=== PATIENT | male | born 1970 | race Caucasian/White ===

== ENCOUNTER → 2019-12-31 10:51 | Outpatient (BNVA) | payer BC, SELFPAY | PROVIDERS: Family Provider Nurse Practitioner Family; PCP Nurse Practitioner Family; Referring Provider Internal Medicine Rheumatology; Visit Provider Internal Medicine Rheumatology | DX: M35.9 Systemic involvement of connective tissue, unspecified (principal); Z79.52 Long term (current) use of systemic steroids; Z79.899 Other long term (current) drug therapy; R76.0 Raised antibody titer | CPT/HCPCS: 36415; 80053; 85613; 85651; 85730; 86140; 86146; 86147 ==

== ENCOUNTER → 2019-12-31 10:58 | Outpatient (BNVA) | payer BC, SELFPAY | PROVIDERS: Family Provider Nurse Practitioner Family; PCP Nurse Practitioner Family; Referring Provider Internal Medicine Rheumatology; Visit Provider Internal Medicine Rheumatology | DX: M35.9 Systemic involvement of connective tissue, unspecified (principal); Z79.52 Long term (current) use of systemic steroids; Z79.899 Other long term (current) drug therapy; R76.0 Raised antibody titer | CPT/HCPCS: 85025 ==

== ENCOUNTER → 2020-01-27 15:23 | Outpatient (BNVA) | payer BC, SELFPAY | PROVIDERS: Family Provider Nurse Practitioner Family; PCP Nurse Practitioner Family; Visit Provider Nurse Practitioner Family | DX: J32.9 Chronic sinusitis, unspecified (principal) | CPT/HCPCS: 71046 ==

== ENCOUNTER → 2020-02-04 10:21 | Outpatient (BNVA) | payer BC, SELFPAY | PROVIDERS: Family Provider Nurse Practitioner Family; PCP Nurse Practitioner Family; Referring Provider Internal Medicine Rheumatology; Visit Provider Specialist | DX: R41.3 Other amnesia (principal); R51 Headache; F17.210 Nicotine dependence, cigarettes, uncomplicated | CPT/HCPCS: 99205 ==

== ENCOUNTER → 2020-02-10 14:13 | Outpatient (BNVA) | payer BC, SELFPAY | PROVIDERS: Family Provider Nurse Practitioner Family; PCP Nurse Practitioner Family; Visit Provider Internal Medicine Rheumatology | DX: M19.90 Unspecified osteoarthritis, unspecified site (principal); Z79.899 Other long term (current) drug therapy; E27.40 Unspecified adrenocortical insufficiency; R76.8 Other specified abnormal immunological findings in serum; R63.4 Abnormal weight loss; F07.81 Postconcussional syndrome; Z79.52 Long term (current) use of systemic steroids | CPT/HCPCS: 99214; G0463 ==

== ENCOUNTER 2020-02-10 15:48 | Outpatient (CLI) | payer BC, SELFPAY ==
--- NOTE | 2020-02-10 16:21 | XR_ITS ---
WS: [id number] RIGHT FOOT: 3 VIEW(S) TECHNIQUE: PA, oblique and lateral. HISTORY: inflammatory arthritis COMPARISON: None available. No acute fracture or dislocation. Mild narrowing of the first metatarsophalangeal joint. No erosions at the metatarsal heads. Mild hype rtrophic bone formation in the midfoot. No soft tissue abnormality or bone destruction. XR/XR foot RT min 3V* [id number] IMPRESSION: 1. No erosions or inflammatory arthritis. 2. 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
--- NOTE | 2020-02-10 16:21 | XR_ITS ---
WS: [id number] RIGHT HAND: 3 VIEW(S) TECHNIQUE: PA, oblique and lateral. HISTORY: inflammatory arthritis COMPARISON: None available. No acute fracture or dislocation. Mild narrowing of the interphalangeal joint spaces. No soft tissue swelling or edema. No erosions at the metacarpal heads. Foreign body in the soft tissues projected between the proximal first and secon d metacarpals projects over the thenar eminence on the lateral projection. Mild narrowing of the distal radioulnar joint. XR/XR hand RT min 3V* [id number] IMPRESSION: Minimal changes of osteoarthritis.
--- NOTE | 2020-02-10 16:21 | XR_ITS ---
WS: [id number] LEFT HAND: 3 VIEW(S) TECHNIQUE: PA, oblique and lateral. HISTORY: inflammatory arthritis COMPARISON: None available. No acute fracture or dislocation. No soft tissue or bone abnormality. XR/XR hand LT min 3V* [id number] IMPRESSION: Normal LEFT hand.
--- NOTE | 2020-02-10 16:21 | XR_ITS ---
WS: [id number] LEFT FOOT: 3 VIEW(S) TECHNIQUE: PA, oblique and lateral. HISTORY: inflammatory arthritis COMPARISON: None available. No acute fracture or dislocation. Very mild narrowing of the first metatarsophalangeal joint. No erosions at the tarsal heads. No osteo penia. Enthesopathy at the Achilles tendon. Very small calcaneal spur. Hammertoe deformities. XR/XR foot LT min 3V* [id number] IMPRESSION: 1. No erosions to suggest inflammatory arthritis. 2. Hammertoe deformities.
== END 2020-02-10 15:49 | disposition home or self-care (01) ==
PROVIDERS: Family Provider Nurse Practitioner Family; PCP Nurse Practitioner Family; Visit Provider Internal Medicine Rheumatology
DX: M19.041 Primary osteoarthritis, right hand (principal); M19.071 Primary osteoarthritis, right ankle and foot; M20.42 Other hammer toe(s) (acquired), left foot
CPT/HCPCS: 73130; 73630

== ENCOUNTER 2020-02-11 08:05 | Outpatient (CLI) | payer BC, SELFPAY ==
[2020-02-11 09:09] LABS: C Reactive Protein 2.4 mg/L (0.0-4.9); Thyroid Stimulating Hormone 1.89 uIU/mL (0.27-4.20)
[2020-02-11 09:16] LABS: 25 Hydroxy Vitamin D 27 ng/mL (30-100)
[2020-02-11 09:21] LABS: Erythrocyte Sedimentation Rate 14 mm/hr (0-10)
[2020-02-11 09:53] LABS: Cortisol Random 13.07 mcg/dL (2.47-19.5)
[2020-02-13 18:36] LABS: HLA-B27 NEGATIVE (NEGATIVE)
== END 2020-02-11 08:06 | disposition home or self-care (01) ==
LOC: LAB 08:08
PROVIDERS: Family Provider Nurse Practitioner Family; PCP Nurse Practitioner Family; Visit Provider Internal Medicine Rheumatology
DX: M19.90 Unspecified osteoarthritis, unspecified site (principal); E27.40 Unspecified adrenocortical insufficiency; Z79.899 Other long term (current) drug therapy
CPT/HCPCS: 36415; 82306; 82533; 84443; 85651; 86140; 86812

== ENCOUNTER 2020-02-16 06:35 | Outpatient (CLI) | payer BC, SELFPAY ==
--- NOTE | 2020-02-16 07:15 | MR_ITS ---
WS: [id number] MRI of the head and brain without IV contrast, 02/16/2020 Clinical Data: migraines Comparison: None. Findings: Ventricular system is normal without shift. No recent infarct or hemorrhage is seen. No abnormal intracerebral mass is present. The cerebellum and brainstem are unremarkable. The carotid arteries show no aneurysms. The regions of nerves VII and VIII and the mastoid air cells are unremarkable. The pituitary, intraorbital contents and paranasal sinuses are normal. MR/MR head wo con* [id number] Impression: Negative MRI of the head and brain.
== END 2020-02-16 06:36 | disposition home or self-care (01) ==
LOC: RADSHAW 06:35
PROVIDERS: Family Provider Nurse Practitioner Family; PCP Nurse Practitioner Family; Visit Provider Specialist
DX: G43.711 Chronic migraine without aura, intractable, with status migrainosus (principal)
CPT/HCPCS: 70551

== ENCOUNTER → 2020-04-12 14:50 | Outpatient (BNVA) | payer BC, SELFPAY | PROVIDERS: Family Provider Nurse Practitioner Family; PCP Nurse Practitioner Family; Visit Provider Internal Medicine Rheumatology | DX: Z79.899 Other long term (current) drug therapy (principal); M19.90 Unspecified osteoarthritis, unspecified site | CPT/HCPCS: 36415; 80076; 82565; 85025; 85651; 86140 ==

== ENCOUNTER → 2020-06-06 12:54 | Outpatient (BNVA) | payer BC, SELFPAY | PROVIDERS: Family Provider Nurse Practitioner Family; PCP Nurse Practitioner Family; Visit Provider Internal Medicine Rheumatology | DX: Z79.899 Other long term (current) drug therapy (principal) | CPT/HCPCS: 36415; 80076; 82565; 85025; 85651; 86140 ==

== ENCOUNTER → 2020-07-21 15:31 | Outpatient (BNVA) | payer BC, SELFPAY | PROVIDERS: Family Provider Nurse Practitioner Family; PCP Nurse Practitioner Family; Visit Provider Internal Medicine Rheumatology | DX: M06.041 Rheumatoid arthritis without rheumatoid factor, right hand (principal); M06.042 Rheumatoid arthritis without rheumatoid factor, left hand; M35.9 Systemic involvement of connective tissue, unspecified; Z79.899 Other long term (current) drug therapy; R76.8 Other specified abnormal immunological findings in serum; F17.210 Nicotine dependence, cigarettes, uncomplicated; Z79.52 Long term (current) use of systemic steroids | CPT/HCPCS: 99214 ==

== ENCOUNTER → 2020-08-16 14:03 | Outpatient (BNVA) | payer BC, SELFPAY | PROVIDERS: Family Provider Nurse Practitioner Family; PCP Nurse Practitioner Family; Visit Provider Nurse Practitioner Family | DX: E78.2 Mixed hyperlipidemia (principal); K21.9 Gastro-esophageal reflux disease without esophagitis; M19.90 Unspecified osteoarthritis, unspecified site; R53.83 Other fatigue; E55.9 Vitamin D deficiency, unspecified; Z79.899 Other long term (current) drug therapy | CPT/HCPCS: 80053; 80061; 80076; 81003; 82306; 82565; 83036; 84443; 85025; 85651; 86140 ==

== ENCOUNTER → 2020-10-14 14:39 | Outpatient (BNVA) | payer BC, SELFPAY | PROVIDERS: Family Provider Nurse Practitioner Family; PCP Nurse Practitioner Family; Visit Provider Nurse Practitioner Family | DX: N39.0 Urinary tract infection, site not specified (principal); N40.0 Benign prostatic hyperplasia without lower urinary tract symptoms; A49.9 Bacterial infection, unspecified; R36.1 Hematospermia | CPT/HCPCS: 81000 ==

== ENCOUNTER 2020-10-18 15:00 | Outpatient (CLI) | payer OTHER, BC, SELFPAY | END 2020-10-18 15:01 | disposition home or self-care (01) | LOC: LAB 08-13 12:03 | PROVIDERS: PCP Nurse Practitioner Family; Visit Provider Nurse Practitioner Family | DX: E87.6 Hypokalemia (principal); N52.9 Male erectile dysfunction, unspecified; R53.83 Other fatigue; N39.0 Urinary tract infection, site not specified; A49.9 Bacterial infection, unspecified | CPT/HCPCS: 80053; 81003; 84402; 84403 ==

== ENCOUNTER → 2020-10-26 11:59 | Outpatient (BNVA) | payer BC, SELFPAY | PROVIDERS: Family Provider Nurse Practitioner Family; PCP Nurse Practitioner Family; Visit Provider Family Medicine | DX: R36.1 Hematospermia (principal); K40.90 Unilateral inguinal hernia, without obstruction or gangrene, not specified as recurrent; R10.9 Unspecified abdominal pain; N45.2 Orchitis | CPT/HCPCS: 87491; 87591 ==

== ENCOUNTER → 2020-11-07 07:56 | Outpatient (BNVA) | payer BC, SELFPAY | PROVIDERS: Family Provider Nurse Practitioner Family; PCP Nurse Practitioner Family; Referring Provider Nurse Practitioner Family; Visit Provider Urology | DX: Z12.5 Encounter for screening for malignant neoplasm of prostate (principal); N40.0 Benign prostatic hyperplasia without lower urinary tract symptoms; N39.0 Urinary tract infection, site not specified; A49.9 Bacterial infection, unspecified; N41.1 Chronic prostatitis | CPT/HCPCS: 81003; G0103 ==

== ENCOUNTER 2020-11-11 13:35 | Outpatient (CLI) | payer BC, SELFPAY ==
[2020-11-11] MEDS: iohexol 300 mg/mL 100 mL Btl IV (14:03)
--- NOTE | 2020-11-11 15:00 | CT_ITS ---
WS: [id number] CT ABDOMEN PELVIS TECHNIQUE: Contrast-enhanced CT of the abdomen and pelvis with coronal and sagittal reformatted image s. CLINICAL INFORMATION: K40.90 - Unilateral inguinal hernia, without obstruction or gangrene, not speci fied as recurrent COMPARISON: CT and ultrasound DLP: 1104.[address] scans at [facility] use at least one of these dose optimization techniques: automat ed exposure control; mA and/or kV adjustment per patient size (includes targeted exams where dose is matched to clinical indication); or iterative reconstruction. FINDINGS: Mild diffuse fatty infiltration of the liver. Multiple low-attenuation lesions in both hepatic lobes consistent with hepatic cysts or hemangiomas. Cholecystectomy clips. Normal GE junction. Lung bases a re well aerated. Adrenal glands are normal. Normal renal parenchymal enhancement. No hydronephrosis. Normal pancreatic parenchymal enhancement. Normal caliber abdominal aorta. No periaortic retroperitoneal lymphadenopat hy. No pelvic lymphadenopathy. No inguinal lymphadenopathy. Normal sigmoid colon. No evidence of high-grade small or large bowel obstruction. Mild disc bulging L 4-L5 and L5-S1. Prostate enlargement measuring 3.9 x 4.7 cm with prostate calcification. No inguinal hernias. Incidental tiny fat-containing umbilical hernia CT/CT abdomen pelvis w con* [id number] IMPRESSION: 1. Numerous low-attenuation lesions in both hepatic lobes consistent with smal l hepatic cysts or hemangiomas unchanged. 2. Prior cholecystectomy. 3. Calcified enlarged prostate is unchanged. 4. No abdominal or pelvic lymphadenopathy. 5. No inguinal hernias. No inguinal lymphadenopathy.
== END 2020-11-11 13:36 | disposition home or self-care (01) ==
LOC: RADWPI 13:40
PROVIDERS: PCP Nurse Practitioner Family; Visit Provider Family Medicine
DX: K40.90 Unilateral inguinal hernia, without obstruction or gangrene, not specified as recurrent (principal); N40.0 Benign prostatic hyperplasia without lower urinary tract symptoms; Z90.49 Acquired absence of other specified parts of digestive tract; K76.9 Liver disease, unspecified
CPT/HCPCS: 74177; Q9967

== ENCOUNTER → 2020-11-21 13:48 | Outpatient (BNVA) | payer BC, SELFPAY | PROVIDERS: PCP Nurse Practitioner Family; Visit Provider Family Medicine | DX: N41.1 Chronic prostatitis (principal); M51.27 Other intervertebral disc displacement, lumbosacral region; Z09 Encounter for follow-up examination after completed treatment for conditions other than malignant neoplasm; Z79.899 Other long term (current) drug therapy | CPT/HCPCS: 85025 ==

== ENCOUNTER → 2021-01-23 16:17 | Outpatient (BNVA) | payer OTHER, SELFPAY | PROVIDERS: PCP Nurse Practitioner Family; Visit Provider Nurse Practitioner Family | DX: E34.9 Endocrine disorder, unspecified (principal) | CPT/HCPCS: 84402; 84403 ==

== ENCOUNTER 2021-02-23 15:26 | Outpatient (CLI) | payer OTHER, SELFPAY ==
--- NOTE | 2021-02-23 15:32 | XR_ITS ---
WS: [id number] HIP WITH PELVIS RIGHT TECHNIQUE: 3 views of the right hip with pelvis CLINICAL INFORMATION: M25.551 - Pain in right hip COMPARISON: None. FINDINGS: Mild degenerative arthritis right hip. Mild arthrosis narrowing. No acute fractures. Normal right pub ic rami. XR/XR hip RT 2-3V wo/w pel* [id number] IMPRESSION: Mild degenerative arthritis right hip. No acute fractures.
--- NOTE | 2021-02-23 15:32 | XR_ITS ---
WS: [id number] LUMBAR SPINE TECHNIQUE: 7 views of the lumbar spine CLINICAL INFORMATION: M51.36 - Other intervertebral disc degeneration, lumbar carrie COMPARISON: None. FINDINGS: Five jxq-xos-lfzzxnt lumbar vertebral bodies. Slight retrolisthesis L2 on L3 and L3 on L4. Mild disc space narrowing L4-5. Mild chronic anterior wedging lower thoracic spine at T11 and T12. No acute britt earing compression fractures. Moderate facet arthropathy L5-S1. No instability on flexion-extension. Cholecystectomy clips. XR/XR lumbar spine 6V w f/e [id number] IMPRESSION: 1. No instability on flexion-extension. 2. Mild disc space narrowing L4-5. 3. No acute lumbar spine findings.
== END 2021-02-23 15:27 | disposition home or self-care (01) ==
PROVIDERS: PCP Nurse Practitioner Family; Visit Provider Nurse Practitioner Family
DX: M51.36 Other intervertebral disc degeneration, lumbar region (principal); M16.11 Unilateral primary osteoarthritis, right hip
CPT/HCPCS: 72114; 73502

== ENCOUNTER → 2021-03-07 08:33 | Outpatient (BNVA) | payer OTHER, SELFPAY | PROVIDERS: PCP Nurse Practitioner Family; Referring Provider Nurse Practitioner Family; Visit Provider Anesthesiology Pain Medicine | DX: G89.29 Other chronic pain (principal); M54.9 Dorsalgia, unspecified; M51.36 Other intervertebral disc degeneration, lumbar region; M06.041 Rheumatoid arthritis without rheumatoid factor, right hand; M47.816 Spondylosis without myelopathy or radiculopathy, lumbar region; M06.042 Rheumatoid arthritis without rheumatoid factor, left hand; M25.551 Pain in right hip; F17.210 Nicotine dependence, cigarettes, uncomplicated | CPT/HCPCS: 99205 ==

== ENCOUNTER 2021-03-20 06:00 | Outpatient (RCR) | payer OTHER, SELFPAY | END 2021-03-31 23:59 | disposition home or self-care (01) | LOC: WPT 06:00 | PROVIDERS: PCP Nurse Practitioner Family; Referring Provider Nurse Practitioner Family; Visit Provider Nurse Practitioner Family | DX: M25.551 Pain in right hip (principal); G89.29 Other chronic pain; M51.36 Other intervertebral disc degeneration, lumbar region; M54.9 Dorsalgia, unspecified | CPT/HCPCS: 80076; 82565; 85025; 86140; 97162 ==

== ENCOUNTER → 2021-03-27 14:45 | Outpatient (BNVA) | payer MEDICAID, SELFPAY | PROVIDERS: PCP Nurse Practitioner Family; Visit Provider Internal Medicine Rheumatology | DX: M06.041 Rheumatoid arthritis without rheumatoid factor, right hand (principal); M06.042 Rheumatoid arthritis without rheumatoid factor, left hand; M35.9 Systemic involvement of connective tissue, unspecified; R76.8 Other specified abnormal immunological findings in serum; Z79.899 Other long term (current) drug therapy; F17.210 Nicotine dependence, cigarettes, uncomplicated | CPT/HCPCS: 99214 ==

== ENCOUNTER → 2021-04-18 10:16 | Outpatient (BNVA) | payer OTHER, SELFPAY | PROVIDERS: PCP Nurse Practitioner Family; Visit Provider Internal Medicine Rheumatology | DX: M06.041 Rheumatoid arthritis without rheumatoid factor, right hand (principal); M06.042 Rheumatoid arthritis without rheumatoid factor, left hand; E34.9 Endocrine disorder, unspecified; M19.90 Unspecified osteoarthritis, unspecified site; Z79.899 Other long term (current) drug therapy | CPT/HCPCS: 80076; 82565; 85025; 86140 ==

== ENCOUNTER → 2022-05-23 11:47 | Outpatient (BNVA) | payer OTHER, SELFPAY | PROVIDERS: PCP Nurse Practitioner Family; Visit Provider Nurse Practitioner | DX: B34.9 Viral infection, unspecified (principal); R53.83 Other fatigue | CPT/HCPCS: 87486; 87581; 87633 ==

== ENCOUNTER 2022-07-13 15:37 | Emergency (ER) | payer SELFPAY ==
[2022-07-13 15:47] VITALS: BP 133/90; PULSE 71; RESP 18; TEMP 36.8; O2SAT 98; BMI 25.1
--- NOTE | 2022-07-13 15:58 | ECG_ITS ---
[facility] Test Date: 2022-07-13 Pat Name: Santos Yang Department: Room: Gender: Male Hot Walker: : 1970 Requested By: Fredy Camp Order Number: [id number] Yunior MD: Leela Rachel M.D. Measurements Intervals Parks Rate: 67 P: 36 ND: 158 QRS: 60 QRSD: 93 T: 58 QT: 377 QTc: 401 Interpretive Statements SINUS RHYTHM No previous ECG available for comparison Electronically Signed On 07-13-2022 18:30:09 CDT by Leela Rachel M.D. [id number]
[2022-07-13 16:00] VITALS: PULSE 87; O2SAT 95
[2022-07-13 16:33] LABS: Basophils % 0.4 %; Eosinophils # 0.2 10^3/uL (0.0-0.8); Eosinophils % 1.9 %; Hematocrit 43.5 % (42.0-52.0); Hemoglobin 14.2 g/dL (11.7-16.6); Lymphocytes # 3.7 10^3/uL (0.8-4.8); Lymphocytes % 38.4 %; Mean Corpuscular HGB Conc 32.6 g/dL (30.0-36.0); Mean Corpuscular Hemoglobin 30.7 pg (28.0-34.0); Monocytes # 0.7 10^3/uL (0.2-0.9); Neutrophils # 4.97 10^3/uL (1.8-7.7); Neutrophils % 52.1 %; Nucleated Red Blood Cells % 0 %; Platelet Count 310 10^3/cmm (130-400); Red Blood Count 4.63 10^6/uL (4.1-5.3); Red Cell Distribution Width 13.3 % (12.1-15.1); White Blood Count 9.5 10^3/uL (4.0-10.0)
[2022-07-13 16:45] VITALS: BP 126/85; PULSE 107; RESP 21; O2SAT 98
--- NOTE | 2022-07-13 16:53 | XRR_ITS ---
PROCEDURE INFORMATION: Exam: XR Chest Exam date and time: 07/13/2022 5:10 PM Age: 52 years old Clinical indication: Dyspnea and shortness of breath; Additional info: Abd pain TECHNIQUE: Imaging protocol: Radiologic exam of the chest. Views: 1 view. COMPARISON: CR XR chest 2V* [id number] 01/27/2020 3:14 PM FINDINGS: Lungs: No apparent interval lung disease. Lung volumes still slightly prominent. Pleural spaces: No pneumothorax or apparent pleural fluid. Heart/Mediastinum: Still no cardiomegaly. Bones/joints: No suggestion of acute bony disease. XR/XR chest 1V portable [id number] IMPRESSION: No acute findings or obvious change.
[2022-07-13 17:08] LABS: Alanine Aminotransferase 12 U/L (0-41); Alkaline Phosphatase 64 IU/L (40-130); Anion Gap 13.8 (5-19); Aspartate Amino Transferase 17 U/L (0-40); Blood Urea Nitrogen 7 mg/dL (6-20); Calcium 8.8 mg/dL (8.5-10.5); Carbon Dioxide 25 mmol/L (22-29); Chloride 103 mmol/L (98-107); Globulin 2.9 g/dL (1.3-4.6); Glomerular Filtration Rate 117.5 mL/min (90-130); Glucose 84 mg/dL (65-115); Lipase 31 U/L (13-60); Osmolality Calculated 283 mOsm/kg (285-295); Potassium 3.8 mmol/L (3.5-5.1); Sodium 138 mmol/L (136-145); Total Bilirubin 0.2 mg/dL (0.15-1.2); Total Protein 6.9 g/dL (6.6-8.7)
[2022-07-13] MEDS: lidocaine 2% viscous 15 ML, aluminum-mag hydrox-simethicon 30 ML, sucralfate oral liq 1 GM PO (17:12)
[2022-07-13] MEDS: ondansetron 2 mg/ML SDV 2 mL 4 MG IVP (17:12)
--- NOTE | 2022-07-13 17:27 | CTR_ITS ---
PROCEDURE INFORMATION: Exam: CT Abdomen And Pelvis With Contrast Exam date and time: 07/13/2022 5:42 PM Age: 52 years old Clinical indication: Abdominal pain; Other: Umbilical; Prior surgery; Surgery date: 6+ months; Patient HX: Pain x3wks wo trauma; Gb emoved, HX of skin CA, smoker x39 yrs; Additional info: Abd pain TECHNIQUE: Imaging protocol: Computed tomography of the abdomen and pelvis with contrast. Radiation optimization: All CT scans at this facility use at least one of these dose optimization techniques: automated exposure control; mA and/or kV adjustment per patient size (includes targeted exams where dose is matched to clinical indication); or iterative reconstruction. Contrast material: OMNIPAQUE 350; Contrast volume: 85 ml; Contrast route: INTRAVENOUS (IV); COMPARISON: CT abdomen pelvis w con* [id number] 11/11/2020 2:01 PM RADIATION DOSE METRICS: Total DLP (mGy-cm): 580.74 FINDINGS: Lungs: Interval minimal dependent atelectasis in the left lower lobe. Continued small centrilobular bleb in the right lower lobe. Liver: Continued homogeneous water density masses in the liver, the largest measuring 19 mm; interval slight increase in size of some of the masses. No interval enhancing liver mass. Gallbladder and bile ducts: Cholecystectomy again evident. Still no biliary ductal dilatation. Pancreas: Pancreas still unremarkable. Spleen: Still no splenomegaly. Adrenal glands: Still no adrenal mass. Kidneys and ureters: Still no hydronephrosis or apparent renal mass. Stomach and bowel: Interval increased elongation of the sigmoid colon with its flexure now in the left middle to upper abdomen. Still no obstruction. Appendix: No appendicitis. Intraperitoneal space: Still no free air. Vasculature: Continued origination of the hepatic, splenic and superior mesenteric arteries from a single trunk arising from the aorta. Still no aortic aneurysm. Two left renal arteries again evident. Lymph nodes: No enlarged lymph nodes. Urinary bladder: Interval bladder distension without wall thickening. Reproductive: No significant change in the prostatic enlargement. Bones/joints: Old compression fractures again evident. Continued degeneration of several discs. Interval completion of the bridging of the spur along the anterior left SI joint. Small Tarlov cyst in the mid right sacrum still likely. Soft tissues: Partial inclusion of a small lipoma in the right lateral lower chest wall as before. CT/CT abdomen pelvis w con* [id number] IMPRESSION: 1. No acute intra-abdominal findings. Interval slight increase in size of some of the simple liver cysts needing no follow-up. 2. No significant change in the prostatic enlargement. Interval bladder distension. 3. Developmental arterial findings and other abnormalities detailed above.
[2022-07-13] MEDS: iohexol 350 mg/mL 100 mL Btl IV (17:46)
--- NOTE | 2022-07-13 17:46 | W.ED.ABDPA2 ---
HPI - Abdominal Pain General: Chief Complaint: Abdominal Pain Stated Complaint: abd pain Time Seen by Provider: 07/13/22 16:50 Source: patient Mode of arrival: ambulatory Limitations: no limitations History of Present Illness: 52-year-old male who states been having sharp epigastric pain over the last 2 weeks he states its been worsening states his pain today is an 8 out of 10 much worse with palpation improved with rest had some nausea denies any diarrhea he has had a cholecystectomy in the past. He states has been taking his Protonix he has had no improvement denies any chest pain denies any shortness of breath. Associated Symptoms: Reports nausea; Denies chills, dysuria and fever(s) Review of Systems Const: Denies: fever(s), chills, body aches or change in appetite Eyes: Denies: blurry vision or eye discomfort ENMT: Denies: throat pain or dental pain Card: Denies: chest pain Resp: Denies: dyspnea GI: Reports: abdominal pain and nausea : Denies: dysuria Musc: Denies: neck pain or back pain Skin/Breast: Denies: rash Neuro: Denies: headache(s) Psych: Denies: depression Av/Lymph: Denies: easy bruising All/Imm: Denies: urticaria PFSH ED PFSH: Medical History Acute bacterial sinusitis Arthritis Back pain Bacterial UTI BPH (benign prostatic hyperplasia) Chronic prostatitis Chronic pruritic rash in adult Chronic right hip pain DDD (degenerative disc disease), lumbar Erectile dysfunction GERD (gastroesophageal reflux disease) Hemospermia Herniated nucleus pulposus, L5-S1 High risk medication use Hypokalemia Hypotestosteronemia Immunization counseling Inflammatory arthritis Internal hemorrhoid Left inguinal hernia Mixed hyperlipidemia Orchitis, left Papilledema Positive ANDERSON (antinuclear antibody) Seronegative rheumatoid arthritis of both hands Sleep apnea Undifferentiated connective tissue disease Vitamin D deficiency Weight loss Surgical History H/O colonoscopy with polypectomy [address] Sherif lorenzo in 5 years - 2022 S/P cholecystectomy Status post surgical removal of malignant neoplasm of skin skin cancer lesions removed from right side of face, left shoulder and left chest Family History Mother No problems noted. Father , AT AGE 76 CAD (coronary artery disease) Diabetes Stroke Cancer LUNG Denies family history of Lupus Social History Smoking and tobacco status: current every day smoker cigarettes Packs smoked per day: 0.5 Quit status (tobacco): considering quitting Second hand smoke exposure: No Smoking risk assessment/counseling performed?: No Alcohol intake: former Desire information about alcohol rehabilitation?: No Counseling given: No Desire information about substance/drug rehabilitation?: No Counseling given: No Marital status: Current occupational status: employed Current occupation: [employer] History of recent travel: No Physical Exam Const: COMMON NORMALS: no acute distress, patient oriented x3 and healthy appearing HENMT: COMMON NORMALS: normocephalic and atraumatic HEAD & SCALP: normocephalic and atraumatic Eye: COMMON NORMALS: Equal, round and reactive pupils present and EOMs intact bilaterally PUPIL: Yes Equal, round and reactive pupils present Neck/C-Spine: COMMON NORMALS: full ROM and supple Chest: COMMONS NORMALS: normal inspection of the chest and normal palpation of entire chest wall Resp: COMMON NORMALS: normal respiratory effort, No retractions, No use of accessory muscles and clear to auscultation bilaterally AUSCULTATION: clear to auscultation bilaterally Cardio: COMMON NORMALS: regular rate, regular rhythm and No murmurs present (Cardio) RATE: regular rate RHYTHM: regular rhythm GI: COMMON NORMALS: Normal to inspection, nondistended, normoactive bowel sounds present, Soft to palpation and no masses PALPATION: Yes Soft to palpation and Yes Tenderness to palpation present (GI) (epigastric) Extremity: COMMON NORMALS: normal to inspection and full ROM Neuro: COMMON NORMALS: patient oriented x3, moves all extremities and no focal motor deficits Psych: COMMON NORMALS: mental status grossly normal, Normal thought process present and cooperative THOUGHT PROCESS: Normal thought process present Skin: COMMON NORMALS: no rashes or lesions noted and no wounds GENERAL SKIN EXAM: no rashes or lesions noted Course Vital Signs: Vital signs: Vital Signs Temperature 98.3 F 07/13/22 15:47 Pulse Rate 75 07/13/22 17:52 Respiratory Rate 18 07/13/22 17:52 Blood Pressure 123/102 07/13/22 17:52 Pulse Oximetry 97 07/13/22 17:52 Oxygen Delivery Me thod 07/13/22 17:52 MDM - Abdominal Pain Medical Decision Making Patient presents here with abdominal pain CT here shows no acute abnormalities blood work is normal as well we will get him follow-up with general surgery he is to return if worsening he understands agrees to plan. Lab Data : 07/13/22 16:27 07/13/22 16:27 Labs/Radiology: Radiology Impressions Chest X-Ray 07/13/22 16:53 IMPRESSION: No acute findings or obvious change. Abdomen/Pelvis CT 07/13/22 17:27 IMPRESSION: 1. No acute intra-abdominal findings. Interval slight increase in size of some of the simple liver cysts needing no follow-up. 2. No significant change in the prostatic enlargement. Interval bladder distension. 3. Developmental arterial findings and other abnormalities detailed above. Laboratory Results WBC 9.5 10^3/uL (4.0-10.0) 07/13/22 16: RBC 4.63 10^6/uL (4.1-5.3) 07/13/22 16: Hgb 14.2 g/dL (11.7-16.6) 07/13/22 16: Hct 43.5 % (42.0-52.0) 07/13/22 16: MCV 94.0 fl (80-94) 07/13/22 16: MCH 30.7 pg (28.0-34.0) 07/13/22 16: MCHC 32.6 g/dL (30.0-36.0) 07/13/22 16: RDW 13.3 % (12.1-15.1) 07/13/22 16: Plt Count 310 10^3/cmm (130-400) 07/13/22 16: MPV 9.0 fL (7.4-10.4) 07/13/22 16: Neut % (Auto) 52.1 % 07/13/22 16: Lymph % (Auto) 38.4 % 07/13/22 16: Bonner % (Auto) 7.0 % 07/13/22 16: Eos % (Auto) 1.9 % 07/13/22 16: Baso % (Auto) 0.4 % 07/13/22 16: Neut # (Auto) 4.97 10^3/uL (1.8-7.7) 07/13/22 16: Lymph # (Auto) 3.7 10^3/uL (0.8-4.8) 07/13/22 16: Bonner # (Auto) 0.7 10^3/uL (0.2-0.9) 07/13/22 16: Eos # (Auto) 0.2 10^3/uL (0.0-0.8) 07/13/22 16: Baso # (Auto) 0.0 10^3/uL (0.0-0.1) 07/13/22 16: Nucleated RBC % (auto) 0 % 07/13/22: Nucleated RBCs # 0.0 /100WBC 07/13/22 16: Sodium 138 mmol/L (136-145) 07/13/22 16: Potassium 3.8 mmol/L (3.5-5.1) 07/13/22 16: Chloride 103 mmol/L (98-107) 07/13/22 16: Carbon Dioxide 25 mmol/L (22-29) 07/13/22 16: Anion Gap 13.8 (5-19) 07/13/22 16: BUN 7 mg/dL (6-20) 07/13/22 16: Creatinine 0.7 mg/dL (0.7-1.2) 07/13/22 16: GFR Calculation 117.5 mL/min (90-130) 07/13/22 16: Glucose 84 mg/dL (65-115) 07/13/22 16: Calculated Osmolality 283 mOsm/kg (285-295) L 07/13/22 16: Calcium 8.8 mg/dL (8.5-10.5) 07/13/22 16: Total Bilirubin 0.2 mg/dL (0.15-1.2) 07/13/22 16: AST 17 U/L (0-40) 07/13/22 16: ALT 12 U/L (0-41) 07/13/22 16: Alkaline Phosphatase 64 IU/L (40-130) 07/13/22 16:27 Total Protein 6.9 g/dL (6.6-8.7) 07/13/22 16:27 Albumin 4.0 g/dL (3.5-5.2) 07/13/22 16:27 Globulin 2.9 g/dL (1.3-4.6) 07/13/22 16:27 Lipase 31 U/L (13-60) 07/13/22 16:27 Discharge Plan Discharge Patient Disposition: Home Clinical Impression: Abdominal pain Qualifiers: Abdominal location: epigastric Qualified Code(s): R10.13 - Epigastric pain Condition: Stable Prescriptions: New ondansetron 4 mg tablet,disintegrating 4 mg PO Q6H PRN (Reason: nausea and vomiting) Qty: 14 0RF No Action levocetirizine [Xyzal] 5 mg tablet 5 mg PO DAILY folic acid 1 mg tablet 1 mg PO DAILY Qty: 90 3RF Hold Instructions: til off cipro and infection resolved sulfasalazine 500 mg tablet 0.5 g PO .as directed 30 Days Qty: 120 3RF Rx Instructions: as directed methotrexate sodium 2.5 mg tablet 20 mg PO .Q7days Qty: 40 3RF Hold Instructions: til off cipro and infection resolved Rx Instructions: take 4 tabs in AM, 4 tabs in PM on the same day prednisone 2.5 mg tablet 7.5 mg PO DAILY Qty: 90 3RF hydroxychloroquine 200 mg tablet 200 mg PO BID Qty: 60 3RF testosterone cypionate 200 mg/mL oil 200 mg IM .every two weeks 90 Days Qty: 6 0RF ceftriaxone 1 gram recon soln 1 g IM ONCE Qty: 1 0RF cephalexin 500 mg capsule 500 mg PO TID 14 Days Qty: 42 1RF loperamide 2 mg capsule 2 mg PO Q6H PRN (Reason: loose stool) Qty: 20 0RF promethazine 25 mg tablet 25 mg PO BID PRN (Reason: nausea and vomiting) Qty: 20 0RF Rx Instructions: 340b sulfamethoxazole-trimethoprim [Bactrim DS] 800-160 mg tablet 1 tab PO Q12H 7 Days Qty: 14 0RF Rx Instructions: 340b tadalafil [Cialis] 20 mg tablet 20 mg PO DAILY PRN (Reason: sexual activity) 30 Days Qty: 30 2RF Rx Instructions: administer 30min before sexual activity; do not use more than 1 dose per 24hrs Discharge Orders: Discharge ED (Routine); Ordered 07/13/22 Ordered By: Fredy Camp Referrals: Jonatan Velazquez MD [Physician] - SANG Martel, [employer] [Primary Care Provider] - Discharge Diet: Advance as tolerated Discharge Activity: Use walker/crutches as instructed Patient Instructions: Abdominal Pain (ED) Coding Level of Care Code ED Floor Plan Adjuster for Chg Fwd Exam Comprehensive
[2022-07-13 17:52] VITALS: BP 123/102; PULSE 75; RESP 18; O2SAT 97
--- NOTE | 2022-07-17 12:44 | DCPLANNER ---
Addendum entered by Monik Mcgraw 08/02/22 08:14: Patient had an appointment scheduled with general surgery - appointment was cancelled. Original Note: immigration case manager had message to schedule a follow up appointment for patient with general surgery. immigration case manager sent patients information to the front office staff at general surgery. Patients information will be printed and reviewed. Clinic will call patient with appointment information.
== END 2022-07-13 18:45 | disposition home or self-care (01) ==
PROVIDERS: Emergency Provider Emergency Medicine; PCP Nurse Practitioner Family
DX: R10.13 Epigastric pain (principal); E78.2 Mixed hyperlipidemia; F17.210 Nicotine dependence, cigarettes, uncomplicated
CPT/HCPCS: 71045; 74177; 80053; 83690; 85025; 93005; 96374; 99285; J2405; Q9967

== ENCOUNTER 2023-07-25 12:03 | Emergency (ER) | payer SELFPAY ==
[2023-07-25 12:53] VITALS: BP 135/94; PULSE 70; RESP 15; O2SAT 98
--- NOTE | 2023-07-25 15:40 | CTR_ITS ---
PROCEDURE INFORMATION: Exam: CT Head Without Contrast Exam date and time: 07/25/2023 3:54 PM Age: 53 years old Clinical indication: Pain; Headache; Additional info: Headache x 5 days, syncope, vertigo neck pain TECHNIQUE: Imaging protocol: Computed tomography of the head without contrast. Radiation optimization: All CT scans at this facility use at least one of these dose optimization techniques: automated exposure control; mA and/or kV adjustment per patient size (includes targeted exams where dose is matched to clinical indication); or iterative reconstruction. REPORTING DATA: Count of CT and Cardiac NM exams in prior 12 months: This patient has received 0 known CTs and 0 known cardiac nuclear medicine studies in the 12 months prior to the current study. COMPARISON: MR head wo con* [id number] 02/16/2020 6:52 AM RADIATION DOSE METRICS: Total DLP (mGy-cm): 1168.1 FINDINGS: Brain: Normal. No hemorrhage. Unremarkable white matter. No mass effect. Cerebral ventricles: No ventriculomegaly. Paranasal sinuses: Visualized sinuses are unremarkable. No fluid levels. Mastoid air cells: Visualized mastoid air cells are well aerated. Bones/joints: Unremarkable. No acute fracture. Soft tissues: Unremarkable. CT/CT head wo con* [id number] IMPRESSION: No acute intracranial abnormality.
--- NOTE | 2023-07-25 15:40 | CTR_ITS ---
PROCEDURE INFORMATION: Exam: CT Cervical Spine Without Contrast Exam date and time: 07/25/2023 3:54 PM Age: 53 years old Clinical indication: Neck pain; Additional info: Neck pain headache TECHNIQUE: Imaging protocol: Computed tomography of the cervical spine without contrast. Radiation optimization: All CT scans at this facility use at least one of these dose optimization techniques: automated exposure control; mA and/or kV adjustment per patient size (includes targeted exams where dose is matched to clinical indication); or iterative reconstruction. REPORTING DATA: Count of CT and Cardiac NM exams in prior 12 months: This patient has received 0 known CTs and 0 known cardiac nuclear medicine studies in the 12 months prior to the current study. COMPARISON: MR head wo con* [id number] 02/16/2020 6:52 AM RADIATION DOSE METRICS: Total DLP (mGy-cm): 193.7 FINDINGS: Bones/joints: No acute fracture. Normal alignment. No significant disc bulge or herniation. No severe spinal canal stenosis. No significant neural foraminal narrowing. Lungs: Lung apices are normal. Soft tissues: Unremarkable. CT/CT cervical spin wo con* [id number] IMPRESSION: No acute findings.
--- NOTE | 2023-07-25 15:51 | W.ED.HA ---
HPI - Headache General: Chief Complaint: Headache Stated Complaint: dizzy, weakness, headache Time Seen by Provider: 07/25/23 15:31 History of Present Illness: Patient presents to the ER with complaints of weakness fatigue for the last 3 weeks. Patient states has had a headache that radiates from the back of his skull from his neck all around to the front for last 5 days. Patient has a history of getting headaches like this and usually goes to the chiropractor and gets manipulated and immediately goes away. Patient did go to the chiropractor about 3 days ago for manipulation and it did not affect his headache at all. Review of Systems General: Reports: 10 or more systems reviewed and unremarkable except in HPI and below PFSH ED PFSH: Medical History Acute bacterial sinusitis Arthritis Back pain Bacterial UTI BPH (benign prostatic hyperplasia) Chronic prostatitis Chronic pruritic rash in adult Chronic right hip pain DDD (degenerative disc disease), lumbar Erectile dysfunction GERD (gastroesophageal reflux disease) Hemospermia Herniated nucleus pulposus, L5-S1 High risk medication use Hypokalemia Hypotestosteronemia Immunization counseling Inflammatory arthritis Internal hemorrhoid Left inguinal hernia Mixed hyperlipidemia Orchitis, left Papilledema Positive ANDERSON (antinuclear antibody) Seronegative rheumatoid arthritis of both hands Sleep apnea Undifferentiated connective tissue disease Vitamin D deficiency Weight loss Surgical History H/O colonoscopy with polypectomy [address] Sherif lorenzo in 5 years - 2022 S/P cholecystectomy Status post surgical removal of malignant neoplasm of skin skin cancer lesions removed from right side of face, left shoulder and left chest Family History Mother No problems noted. 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 Physical Exam Const: COMMON NORMALS: no acute distress, average body habitus, patient oriented x3, no limitations, healthy appearing, alert and well nourished HENMT: COMMON NORMALS: normocephalic, atraumatic, hearing grossly normal bilaterally, external ears normal, Normal external nose present and moist oral mucous membranes HEAD & SCALP: normocephalic and atraumatic NOSE: Normal external nose present EXTERNAL EAR: Yes external ears normal Eye: COMMON NORMALS: Equal, round and reactive pupils present, EOMs intact bilaterally, conjunctivae normal and no scleral icterus CONJUNCTIVA: Yes conjunctivae normal PUPIL: Yes Equal, round and reactive pupils present Neck/C-Spine: COMMON NORMALS: full ROM, no lymphadenopathy, supple, no meningeal signs, no JVD and Thyroid normal THYROID: Thyroid normal Lymph: LYMPHATIC: no lymphadenopathy noted Chest: COMMONS NORMALS: normal inspection of the chest and normal palpation of entire chest wall Resp: COMMON NORMALS: normal respiratory effort, No retractions, No use of accessory muscles and clear to auscultation bilaterally AUSCULTATION: clear to auscultation bilaterally Cardio: COMMON NORMALS: no JVD, regular rate, regular rhythm, S1 normal heart sound present, S2 normal heart sound present, No gallops present (Cardio), No clicks present (Cardio), No murmurs present (Cardio) and No rub (Cardio) RATE: regular rate RHYTHM: regular rhythm HEART SOUNDS: S1 normal heart sound present and S2 normal heart sound present GI: COMMON NORMALS: Normal to inspection, nondistended, normoactive bowel sounds present, Soft to palpation, non-tender, No hepatosplenomegaly present and no masses PALPATION: Yes Soft to palpation and Yes No hepatosplenomegaly present : COMMON NORMALS: Yes no CVA tenderness BLADDER/KIDNEY EXAM: Yes no CVA tenderness Back/Pelvis: COMMON NORMALS: no CVA tenderness Neuro: COMMON NORMALS: patient oriented x3 SENSORIUM/ORIENTATION: Yes alert MENINGEAL SIGNS: Yes no meningeal signs Course Vital Signs: Vital signs: Vital Signs Pulse Rate 70 07/25/23 17:00 Respiratory Rate 15 07/25/23 12:53 Blood Pressure 118/82 07/25/23 17:00 Pulse Oximetry 95 07/25/23 17:00 Oxygen Delivery Me thod Room Air 07/25/23 17:00 MDM - Headache Medical Decision Making Patient presents to the ER with complaints of having dizziness and weakness now for several weeks and also a headache over the last 5 days that he cannot break. Patient's tried going to the chiropractor which did not help. Patient presented here where labs were obtaine physical exam was performed. Labs are essentially benign. Patient was given Toradol 60 mg and Decadron 10 mg IM. Upon further questioning patient said he does have a history of Lyme disease and would like a prescription for doxycycline just to rule that out in case it came back in because the symptoms. We discharged home with diagnosis of of headache muscle weakness and a prescription of doxycycline. Patient should follow-up with his PCP in the next 7 days. Differential Diagnosis Likely tension headache and headache; Unlikely migraine, subarachnoid hemorrhage, meningitis, sinusitis or postconcussion syndrome Medical Records I reviewed the patient's medical records. Lab Data I reviewed the patient's lab results. 07/25/23 16:19 07/25/23 16:19 Radiology Impressions Cervical Spine CT 07/25/23 15:40 IMPRESSION: No acute findings. Head CT 07/25/23 15:40 IMPRESSION: No acute intracranial abnormality. Laboratory Results WBC 8.15 10^3/uL (3.29-11.43) 07/25/23 16:19 RBC 4.98 10^6/uL (3.85-5.65) 07/25/23 16:19 Hgb 15.20 g/dL (11.27-16.99) 07/25/23 16:19 Hct 46.2 % (37-53) 07/25/23 16:19 MCV 92.8 fl (82-101) 07/25/23 16:19 MCH 30.5 pg (27-33) 07/25/23 16:19 MCHC 32.9 g/dL (30-55) 07/25/23 16:19 RDW 13.9 % (12.1-15.1) 07/25/23 16:19 Plt Count 300 10^3/cmm (157-399) 07/25/23 16:19 MPV 8.7 fL (7.4-10.4) 07/25/23 16:19 Neut % (Auto) 50.0 % 07/25/23 16:19 Lymph % (Auto) 38.7 % 07/25/23 16:19 [place] % (Auto) 7.9 % 07/25/23 16:19 Eos % (Auto) 2.6 % 07/25/23 16:19 Baso % (Auto) 0.4 % 07/25/23 16:19 Neut # (Auto) 4.09 10^3/uL (1.8-7.7) 07/25/23 16:19 Lymph # (Auto) 3.2 10^3/uL (0.8-4.8) 07/25/23 16:19 [place] # (Auto) 0.6 10^3/uL (0.2-0.9) 07/25/23 16:19 Eos # (Auto) 0.2 10^3/uL (0.0-0.8) 07/25/23 16:19 Baso # (Auto) 0.0 10^3/uL (0.0-0.1) 07/25/23 16:19 Nucleated RBC % (auto) 0 % 07/25/23 16:19 Nucleated RBCs # 0.0 /100WBC 07/25/23 16:19 Sodium 142 mmol/L (136-145) 07/25/23 16:19 Potassium 4.0 mmol/L (3.5-5.1) 07/25/23 16:19 Chloride 104 mmol/L (98-107) 07/25/23 16:19 Carbon Dioxide 29 mmol/L (22-29) 07/25/23 16:19 Anion Gap 13.0 (5-19) 07/25/23 16:19 BUN 10 mg/dL (6-20) 07/25/23 16:19 Creatinine 0.7 mg/dL (0.7-1.2) 07/25/23 16:19 GFR Calculation 117.1 mL/min (90-130) 07/25/23 16:19 Glucose 87 mg/dL (65-115) 07/25/23 16:19 Calculated Osmolality 292 mOsm/kg (285-295) 07/25/23 16:19 Calcium 8.9 mg/dL (8.5-10.5) 07/25/23 16:19 Magnesium 2.1 mg/dL (1.7-2.3) 07/25/23 16:19 Total Bilirubin 0.4 mg/dL (0.15-1.2) 07/25/23 16:19 AST 18 U/L (0-40) 07/25/23 16:19 ALT 14 U/L (0-41) 07/25/23 16:19 Alkaline Phosphatase 68 U/L (40-130) 07/25/23 16:19 C-Reactive Protein 3.0 mg/L (0.0-4.9) 07/25/23 16:19 Total Protein 7.4 g/dL (6.6-8.7) 07/25/23 16:19 Albumin 4.4 g/dL (3.5-5.2) 07/25/23 16:19 Globulin 3.0 g/dL (1.3-4.6) 07/25/23 16:19 Urine Color Yellow (Yellow) 07/25/23 16:06 Urine Appearance Clear (CLEAR) 07/25/23 16:06 Urine pH 6 (5-7) 07/25/23 16:06 Ur Specific [place] 1.005 (1.005-1.030) 07/25/23 16:06 Urine Protein Neg (Negative) 07/25/23 16:06 Urine Glucose (UA) Norm (Normal) 07/25/23 16:06 Urine Ketones Negative (Negative) 07/25/23 16:06 Urine Blood Neg (Negative) 07/25/23 16:06 Urine Nitrate Negative (Negative) 07/25/23 16:06 Urine Bilirubin Neg (Negative) 07/25/23 16:06 Urine Urobilinogen Norm mg/dL (Negative) 07/25/23 16:06 Ur Leukocyte Esterase Negative (Negative) 07/25/23 16:06 Discharge Plan Discharge Patient Disposition: Home Clinical Impression: Generalized muscle weakness Headache Qualifiers: Headache type: unspecified Headache chronicity pattern: acute headache Intractability: not intractable Qualified Code(s): R51.9 - Headache, unspecified Condition: Stable Prescriptions: New doxycycline monohydrate 100 mg capsule 100 mg PO BID Qty: 14 0RF No Action tadalafil [Cialis] 20 mg tablet 20 mg PO DAILY PRN (Reason: sexual activity) 30 Days Qty: 30 2RF Rx Instructions: administer 30min before sexual activity; do not use more than 1 dose per 24hrs pt needs 340B please, he does not have insurance. Aleve 220 mg Capsule 220 mg PO Q12H PRN (Reason: Pain) Discharge Orders: Discharge ED (Routine); Ordered 07/25/23 Ordered By: Sadiq Smith Referrals: Catrina Montoya FNP [Primary Care Provider] - 1 week Patient Instructions: Headache, Weakness (Generalized) Activity Restrictions/Additional Instructions: Please take all your medicine as directed, please follow-up with family practice physician within next week or so as needed. Please return to the emergency room if symptoms worsen or return. Coding Level of Care Code ED Functional Consultant for Shin Lanza
--- NOTE | 2023-07-25 16:04 | ECG_ITS ---
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 Measurements Intervals [place] Rate: 62 P: 38 MA: 173 QRS: 38 QRSD: 91 T: 34 QT: 395 QTc: 404 Interpretive Statements SINUS RHYTHM Compared to ECG 07/13/2022 15:58:05 No significant changes Electronically Signed On 07-25-2023 17:04:58 CDT by Augusto Chowdhury M.D. [id number]
[2023-07-25 16:09] VITALS: BP 148/97; PULSE 70; O2SAT 98
[2023-07-25 16:12] LABS: Add Urine Microscopic? NO; Charge for UA Resulting for Rev
[2023-07-25 16:20] LABS: Bilirubin Urine Neg (Negative); Blood Urine Neg (Negative); Glucose Urine UA Norm (Normal); Ketones Urine Negative (Negative); Leukocyte Esterase Urine Negative (Negative); Nitrate Urine Negative (Negative); Protein Urine Neg (Negative); Specific Gravity, Urine 1.005 (1.005-1.030); Urine Appearance Clear (CLEAR); Urine Color Yellow (Yellow); Urobilinogen Urine Norm (Negative); pH Urine 6 (5-7)
[2023-07-25 16:39] LABS: Basophils % 0.4 %; Eosinophils # 0.2 10^3/uL (0.0-0.8); Eosinophils % 2.6 %; Hematocrit 46.2 % (37-53); Lymphocytes # 3.2 10^3/uL (0.8-4.8); Lymphocytes % 38.7 %; Mean Corpuscular HGB Conc 32.9 g/dL (30-55); Mean Corpuscular Hemoglobin 30.5 pg (27-33); Mean Corpuscular Volume 92.8 fl (82-101); Mean Platelet Volume 8.7 fL (7.4-10.4); Monocytes # 0.6 10^3/uL (0.2-0.9); Monocytes % 7.9 %; Neutrophils # 4.09 10^3/uL (1.8-7.7); Nucleated Red Blood Cells % 0 %; Platelet Count 300 10^3/cmm (157-399); Red Blood Count 4.98 10^6/uL (3.85-5.65); Red Cell Distribution Width 13.9 % (12.1-15.1); White Blood Count 8.15 10^3/uL (3.29-11.43)
[2023-07-25 16:53] LABS: Alanine Aminotransferase 14 U/L (0-41); Albumin Level 4.4 g/dL (3.5-5.2); Alkaline Phosphatase 68 U/L (40-130); Aspartate Amino Transferase 18 U/L (0-40); Blood Urea Nitrogen 10 mg/dL (6-20); Calcium 8.9 mg/dL (8.5-10.5); Carbon Dioxide 29 mmol/L (22-29); Chloride 104 mmol/L (98-107); Glomerular Filtration Rate 117.1 mL/min (90-130); Glucose 87 mg/dL (65-115); Magnesium 2.1 mg/dL (1.7-2.3); Osmolality Calculated 292 mOsm/kg (285-295); Sodium 142 mmol/L (136-145); Total Bilirubin 0.4 mg/dL (0.15-1.2); Total Protein 7.4 g/dL (6.6-8.7)
[2023-07-25 17:00] VITALS: BP 118/82; PULSE 70; O2SAT 95
[2023-07-25 18:00] VITALS: BP 134/88; PULSE 83; O2SAT 96
[2023-07-25] MEDS: dexamethasone 10 mg/mL INJ IM (18:15)
[2023-07-25] MEDS: ketorolac 60 mg/2 mL INJ IM (18:15)
== END 2023-07-25 18:31 | disposition home or self-care (01) ==
PROVIDERS: Emergency Provider Emergency Medicine; PCP Nurse Practitioner
DX: R51.9 Headache, unspecified (principal); M62.81 Muscle weakness (generalized); F17.210 Nicotine dependence, cigarettes, uncomplicated; E78.2 Mixed hyperlipidemia
CPT/HCPCS: 36415; 70450; 72125; 80053; 81003; 83735; 85025; 86140; 93005; 96372; 99285; J1100; J1885

== ENCOUNTER → 2023-08-12 11:07 | Outpatient (BNVA) | payer SELFPAY | PROVIDERS: PCP Nurse Practitioner; Visit Provider Nurse Practitioner | DX: R53.83 Other fatigue (principal) | CPT/HCPCS: 84443 ==

== ENCOUNTER 2023-09-07 10:04 | Emergency (ER) | payer SELFPAY ==
--- NOTE | 2023-09-07 10:07 | XRR_ITS ---
PROCEDURE INFORMATION: Exam: XR Left Hip Exam date and time: 09/07/2023 10:24 AM Age: 53 years old Clinical indication: Hip pain; Left hip TECHNIQUE: Imaging protocol: Radiologic exam of the left hip. Views: 2 or 3 views hip with pelvis when performed. COMPARISON: CT abdomen pelvis w con* [id number] 07/13/2022 5:42 PM FINDINGS: Bones/joints: Unremarkable. No acute fracture. Soft tissues: Unremarkable. XR/XR hip LT 2-3V wo/w pel* [id number] IMPRESSION: No acute findings.
[2023-09-07 10:13] VITALS: BP 138/98; PULSE 80; RESP 16; TEMP 37.1; O2SAT 98
--- NOTE | 2023-09-07 10:19 | ED_ITS ---
HPI - Extremity Problem General: Chief complaint: Extremity Injury, Lower Stated complaint: left hip pain Time Seen by Provider: 09/07/23 10:06 Source: patient Mode of arrival: ambulatory History of Present Illness: 53-year-old male presents emergency room complaining of left hip pain. Left hip and upper leg pain that began 3 weeks ago after he stepped in a hole. His pain in the lateral portion of the hip radiating down to the knee and the lateral aspect of the leg he has no numbness or tingling no muscle strength weakness. He denies back pain he has had problems with back in the past. No previous surgeries. He seen the chiropractor and has tried ibuprofen and some previously prescribed muscle relaxers with no relief of symptoms. Denies any urinary retention or fecal incontinence. No direct trauma. MD Complaint: extremity pain and joint pain Onset (ago): week(s) (3) Pain Consistency: constant Location: left and lower extremity Quality: aching Radiation: distal Relieving factors: nothing Exacerbating factors: nothing Associated symptoms: Deny chest pain, fever(s), myalgias or short of breath Review of Systems Const: Denies: fever(s) or chills Card: Denies: chest pain Resp: Denies: dyspnea GI: Denies: abdominal pain : Denies: dysuria Musc: Reports: back pain and extremity pain; Denies: neck pain Skin/Breast: Denies: pruritus Neuro: Denies: headache(s) PFS ED PFSH: Medical History Acute bacterial sinusitis Arthritis Back pain Bacterial UTI BPH (benign prostatic hyperplasia) Chronic prostatitis Chronic pruritic rash in adult Chronic right hip pain DDD (degenerative disc disease), lumbar Erectile dysfunction GERD (gastroesophageal reflux disease) Hemospermia Herniated nucleus pulposus, L5-S1 High risk medication use Hypokalemia Hypotestosteronemia Immunization counseling Inflammatory arthritis Internal hemorrhoid Left inguinal hernia Mixed hyperlipidemia Orchitis, left Papilledema Positive ANDERSON (antinuclear antibody) Seronegative rheumatoid arthritis of both hands Sleep apnea Undifferentiated connective tissue disease Vitamin D deficiency Weight loss Surgical History H/O colonoscopy with polypectomy [address] Sherif lorenzo in 5 years - 2022 S/P cholecystectomy Status post surgical removal of malignant neoplasm of skin skin cancer lesions removed from right side of face, left shoulder and left chest Family History Mother No problems noted. 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 Physical Exam Const: GENERAL APPEARANCE: cooperative and comfortable ORIENTATION/CONSCIOUSNESS: Yes awake, Yes oriented to person, Yes oriented to place and Yes oriented to time HENMT: COMMON NORMALS: normocephalic, atraumatic and hearing grossly normal bilaterally HEAD & SCALP: normocephalic and atraumatic Resp: COMMON NORMALS: normal respiratory effort, No retractions, No use of accessory muscles and clear to auscultation bilaterally AUSCULTATION: clear to auscultation bilaterally Cardio: COMMON NORMALS: regular rate, regular rhythm and No murmurs present (Cardio) RATE: regular rate RHYTHM: regular rhythm GI: COMMON NORMALS: Soft to palpation and No hepatosplenomegaly present AUSCULTATION: Yes normoactive bowel sounds PALPATION: Yes Soft to palpation, No Tenderness to palpation present (GI), No Guarding due to palpation present (GI) and Yes No hepatosplenomegaly present Extremity: COMMON NORMALS: normal to inspection, capillary refill normal, no clubbing, cyanosis or edema, no calf tenderness and no pedal edema Neuro: SENSORIUM/ORIENTATION: Yes oriented to person, Yes oriented to place and Yes oriented to time OTHER: No focal neurologic deficits are noted deep tendon reflexes +2 for patellar tendon on the left leg dorsum plantarflexion 5 of 5 straight leg raising negative Skin: COMMON NORMALS: no rashes or lesions noted GENERAL SKIN EXAM: no rashes or lesions noted Course Vital Signs: Vital signs: Vital Signs Temperature 98.7 F 09/07/23 10:13 Pulse Rate 74 09/07/23 11:15 Respiratory Rate 16 09/07/23 10:13 Blood Pressure 138/95 09/07/23 11:15 Pulse Oximetry 98 09/07/23 11:15 Oxygen Delivery Me thod Room Air 09/07/23 10:13 MDM - Extremity (Nontraumatic) Medical Decision Making X-ray of the hip unremarkable. Based on his history and his exam I suspect he has a nerve root irritation irritation probably at L4-5. We will discharge patient home he has no red flag symptoms at this time. Started on steroid taper anti-inflammatories muscle relaxers follow-up with primary care if persist may need referral to PT and or advanced imaging based course of symptoms. Medical Records I reviewed the patient's medical records. Lab Data I reviewed the patient's lab results. Radiology Impressions Hip/Pelvis X-Ray 09/07/23 10:07 IMPRESSION: No acute findings. All radiology interpretation(s) finalized by discharge Discharge Plan Discharge Patient Disposition: Home Clinical Impression: Radicular pain of left lower extremity Condition: Stable Prescriptions: New tizanidine 4 mg tablet 4 mg PO Q6H PRN (Reason: muscle spasticity) Qty: 20 0RF Rx Instructions: do not exceed 3 doses per 24 hrs prednisone 20 mg tablet 20 mg PO TID Qty: 15 0RF Rx Instructions: 1 p.o. 3 times daily x3 days, 1 p.o. twice daily x2 days, 1 p.o. daily x2 days diclofenac sodium 75 mg tablet,delayed release (DR/EC) 75 mg PO Q12H PRN (Reason: pain) Qty: 20 0RF Discontinued naproxen sodium [Aleve] 220 mg Tablet 220 mg PO Q12H PRN (Reason: Pain) No Action tadalafil [Cialis] 20 mg tablet 20 mg PO DAILY PRN (Reason: sexual activity) 30 Days Qty: 30 2RF Rx Instructions: administer 30min before sexual activity; do not use more than 1 dose per 24hrs pt needs 340B please, he does not have insurance. multivitamin Tablet 1 tab PO DAILY Pepcid 20 mg Tablet 20 mg PO BID Gas-X Maximum Strength 166 mg Capsule 166 mg PO DAILY Discharge Orders: Discharge ED (Routine); Ordered 09/07/23 Ordered By: Kalyan Kumar Referrals: Catrina Montoya FNP [Primary Care Provider] - Discharge Diet: Usual diet Discharge Activity: Limit activity as instructed Patient Instructions: Opioid Safety, Pain Management Activity Restrictions/Additional Instructions: Suspect you may have a lumbar nerve root irritation. X-ray of your hip was negative. You are given prescription for prednisone taper to start tomorrow prescription anti-inflammatories to use instead of [id number] Aleve and a different muscle relaxer. Follow-up with your primary care doctor if this persists she may require referral to physical therapy or possible advanced imaging Coding Level of Care Code ED Senior Technical Manager for Shin Lanza
[2023-09-07] MEDS: ketorolac 30 mg/mL INJ IVP (10:34)
[2023-09-07] MEDS: dexamethasone 10 mg/mL INJ IVP (10:34)
[2023-09-07] MEDS: orphenadrine 30 mg/mL Inj 2 mL 60 MG IVP (10:35)
[2023-09-07 11:15] VITALS: BP 138/95; PULSE 74; O2SAT 98
== END 2023-09-07 11:16 | disposition home or self-care (01) ==
PROVIDERS: Emergency Provider Family Medicine; PCP Nurse Practitioner
DX: M54.10 Radiculopathy, site unspecified (principal); F17.210 Nicotine dependence, cigarettes, uncomplicated; E78.2 Mixed hyperlipidemia
CPT/HCPCS: 73502; 96374; 96375; 99284; J1100; J1885; J2360

== ENCOUNTER → 2024-04-06 14:41 | Outpatient (BNVA) | payer SELFPAY | PROVIDERS: PCP Nurse Practitioner Family; Visit Provider Nurse Practitioner Family | DX: R30.0 Dysuria (principal); Z72.51 High risk heterosexual behavior; R31.9 Hematuria, unspecified; Z79.899 Other long term (current) drug therapy; Z13.6 Encounter for screening for cardiovascular disorders; Z12.5 Encounter for screening for malignant neoplasm of prostate; N41.9 Inflammatory disease of prostate, unspecified | CPT/HCPCS: 80053; 81003; 83036; 84443; 85025; 87086; G0103 ==

== ENCOUNTER → 2025-04-21 16:48 | Outpatient (BNVA) | payer SELFPAY | PROVIDERS: PCP Nurse Practitioner Family; Visit Provider Nurse Practitioner Family | DX: R00.2 Palpitations (principal); K21.9 Gastro-esophageal reflux disease without esophagitis; Z12.5 Encounter for screening for malignant neoplasm of prostate; N52.9 Male erectile dysfunction, unspecified; M19.90 Unspecified osteoarthritis, unspecified site; R06.00 Dyspnea, unspecified; Z79.899 Other long term (current) drug therapy | CPT/HCPCS: 71046; 80053; 80061; 81003; 82306; 82607; 82728; 82746; 83036; 83550; 84443; 85025; 86160; 86618; 86666; 86668; 86757; G0103 ==

== ENCOUNTER 2025-04-28 14:28 | Outpatient (CLI) | payer SELFPAY ==
--- NOTE | 2025-04-28 15:15 | MR_ITS ---
WS: [id number] MRI CERVICAL SPINE NONCONTRAST TECHNIQUE: Sagittal T1, T2 and STIR imaging. Axial T2, gradient, and fiesta imaging. CLINICAL INFORMATION: R51.9 - Headache, unspecified COMPARISON: None. FINDINGS: Straightening of the normal cervical lordosis. Cord signal is normal. C2-C3: Mild facet arthropathy. Spinal canal and foramen are patent. C3-C4: Mild facet arthropathy. Mild bilateral bony foraminal narrowing. C4-C5: Disc osteophyte complex with shallow RIGHT paracentral protrusion. Mild facet arthropathy. Foramen are patent. C5-C6: Disc osteophyte complex with endplate ridging. Severe LEFT and moderate RIGHT bony foraminal narrowing. Mild facet arthropathy. Mild central canal stenosis. C6-C7: Disc osteophyte complex with severe bilateral bony foraminal narrowing. Facet arthropathy with uncovertebral joint hypertrophy. Mild central canal stenosis. Tiny shallow central protrusion. C7-T1: Spinal canal and foramen are patent. Visualized brain stem structures: Normal. Prevertebral soft tissues: Normal. MR/MR cervical spin wo con* [id number] IMPRESSION: 1. Straightening of normal cervical lordosis. Moderate spondylitic changes. 2. Mild central canal stenosis C5-C6 and C6-C7 due to shallow disc osteophyte protrusions. 3. Shallow RIGHT paracentral protrusion C4-5 with slight indentation of the ce rvical cord. 4. Multilevel moderate to severe bony foraminal narrowing worse at bilateral C 5-6 and bilateral C6-7.
== END 2025-04-28 14:29 | disposition home or self-care (01) ==
PROVIDERS: PCP Nurse Practitioner Family; Visit Provider Nurse Practitioner Family
DX: R51.9 Headache, unspecified (principal); G89.29 Other chronic pain; R53.82 Chronic fatigue, unspecified; R06.09 Other forms of dyspnea; M47.892 Other spondylosis, cervical region; M48.02 Spinal stenosis, cervical region; M50.221 Other cervical disc displacement at C4-C5 level; M25.78 Osteophyte, vertebrae; M53.82 Other specified dorsopathies, cervical region
CPT/HCPCS: 72141

== ENCOUNTER 2025-05-17 09:26 | Outpatient (CLI) | payer SELFPAY ==
--- NOTE | 2025-05-17 10:15 | USCV_ITS ---
Santos Yang Age: 55 Gender: M : 1970 Exam Date: 05/17/2025 09:41 Ordering Phys: SANG Martel APRN Technologist: JOSÉ MIGUEL [place]am [place] [facility] [place]: dizziness Risk Factors: Previous Vascular Surgery: Right Brachial BP: / Left Brachial BP: / Right Left Velocity (cm/s) Spectral Plaque Velocity (cm/s) Spectral Plaque Syst/Diast Broadening Syst/Diast Broadening 73.70/ 23.20 Prox CCA 72.50 / 22.40 73.70/ 23.20 Mid CCA 57.90 / 23.60 62.10/ 20.60 Distal CCA 65.00 / 25.00 45.20/ 18.00 Prox ICA 51.30 / 21.10 67.90/ 25.60 Mid ICA 56.70 / 26.50 42.00/ 17.80 Distal ICA 65.00 / 29.60 75.00 ECA 59.50 0.70 ICA/CCA 0.80 Antegrade Vertebral Antegrade 33.70/ 12.00 cm/s 46.70/ 23.20 cm/s Tri Subclavian Tri 62.70 90.00 CONCLUSIONS Right ICA stenosis <50%. Moderate atheromatous plaque right carotid bulb/ICA. Left ICA stenosis <50%. Moderate atheromatous plaque left carotid bulb/ICA. Intimal thickening in the common carotid arteries and internal carotid arteries bilaterally. Normal antegrade Doppler flow noted in the right vertebral artery. Normal antegrade Doppler flow noted in the left vertebral artery. Victor Hugo Xiong MD (Electronically Signed) Final Date: 17 May 2025 10:36 S
== END 2025-05-17 09:27 | disposition home or self-care (01) ==
PROVIDERS: PCP Nurse Practitioner Family; Visit Provider Nurse Practitioner Family
DX: R51.9 Headache, unspecified (principal); G89.29 Other chronic pain; R53.82 Chronic fatigue, unspecified; R06.09 Other forms of dyspnea
CPT/HCPCS: 93880